=== PATIENT | male | born 1955 | race Caucasian/White ===

== ENCOUNTER → 2021-08-24 | Day surgery (SDC) | payer BC ==
[2021-08-13 09:28] VITALS: BMI 46.0
[~2021-08-24] MED LIST: APIXABAN 5 MG TAB PO SCH; LACTATED RINGERS 1,000 ML IV SCH; PROPOFOL 10 MG/ML 20 ML VIAL IV ONE; SODIUM CHLORIDE 0.9% 1,000 ML IV SCH
[2021-08-24 10:40] VITALS: TEMP 98.2
[2021-08-24 10:45] LABS: Glucose,Whole Blood 112 mg/dL (70-110)
[2021-08-24 11:15] LABS: African American GFR (CKD) >90 (>60 ml/min/1.73 sqM); Anion Gap 6 mmol/L; Blood Urea Nitrogen 14 mg/dL (9-20); Calcium 8.6 mg/dL (8.4-10.2); Carbon Dioxide 31 mmol/L (22-30); Chloride 103 mmol/L (98-107); Glucose 121 mg/dL (74-99); Non-African American GFR(CKD) >90 (>60 ml/min/1.73 sqM); Sodium 140 mmol/L (137-145)
[2021-08-24 11:22] LABS: Potassium 4.2 mmol/L (3.5-5.1)
--- NOTE | 2021-08-24 12:23 | P.PCN ---
Date of Procedure: 08/24/21 Operative Findings: TRANSESOPHAGEAL ECHOCARDIOGRAM MAGNETIC HEALER: TONE GARZA MD, RPVI INDICATION: Cardioversion of atrial fibrillation SEDATION: Conscious sedation COMPLICATION: None LEVEL OF SEDATION The procedure was performed under general anesthesia PROCEDURE DESCRIPTION: After obtaining an informed consent, the patient was brought to recovery room. Pulse oximetry and heart monitors were attached to the patient. The patient throat was sprayed using lidocaine. The patient was turned into left lateral position. After that a bite guard was placed. After an appropriate conscious sedation was initiated, the transesophageal echocardiogram was advanced through a bite guard into the mid esophagus. A 2-D echocardiogram images, color Doppler images, continuous wave images, pulse-wave images, of various cardiac structure were performed. After that the transesophageal echocardiogram probe was advanced into the stomach and fixed to obtain transgastric view was. The probe was brought into the mid esophagus. Inter-atrial septum was interrogated using 2D images, color Doppler images, and then contrast study. After that transesophageal echocardiogram was withdrawn out and upon withdrawing the descending thoracic aorta all the way up to the arch was evaluated. FINDING: The left ventricular dimension and systolic function appeared to be normal. The EF appears to be in the range of 55-60%. There is mild concentric. The right ventricle appears to be of normal size and function. The aortic valve is trileaflet valve and appeared to be sclerotic was mild aortic stenosis and peak gradient of 20 and mean of 10 mmHg. The mitral valve appeared to be thickened and calcified with moderate MR. There is mild tricuspid regurgitation was identified. The interatrial septum appears to be intact. The left atrial appendage appeared to be intact as well. CONCLUSION: 1. Intact left atrial appendage without any evidence of thrombus. Intact interatrial septum 2. Normal left ventricular dimension and systolic function. Mild left ventricular hypertrophy 3. Trileaflet aortic valve with evidence of aortic sclerosis with mild aortic stenosis. Mean gradient was 10 mm roselia 4. Thickened mitral valve leaflets with moderate mitral regurgitation 5. Normal tricuspid valve and pulmonic valve 6. No evidence of pericardial
--- NOTE | 2021-08-24 12:25 | P.PCN ---
Date of Procedure: 08/24/21 Operative Findings: Cardioversion Report Performing physician Maurice Gentile M.D. Procedure performed Attempted cardioversion of atrial fibrillation to normal sinus mechanism using 200 J biphasic x2 Indication Symptomatic atrial fibrillation Complication None Level of sedation The procedure was performed under deep sedation using propofol with PASTRY ARTIST in the room Procedure description After obtaining an informed consent the patient was brought to the recovery room. Sedation was introduced using propofol with PASTRY ARTIST in the room. Transesophageal echocardiogram was performed and intracardiac thrombus was ruled out Attempting cardioversion was performed 2 using 200 J biphasic and was unsuccessful.
[2021-08-24 12:53] VITALS: RESP 16
[2021-08-24 15:06] VITALS: BP 147/90; PULSE 80
== END ==
LOC: CATHCVL 10:04
PROVIDERS: ATTEND Internal Medicine Interventional Cardiology
DX: I48.0 Paroxysmal atrial fibrillation (principal); E11.9 Type 2 diabetes mellitus without complications; I10 Essential (primary) hypertension; E78.5 Hyperlipidemia, unspecified; E66.3 Overweight; G47.30 Sleep apnea, unspecified; M19.90 Unspecified osteoarthritis, unspecified site; Z79.01 Long term (current) use of anticoagulants; Z79.84 Long term (current) use of oral hypoglycemic drugs; Z79.4 Long term (current) use of insulin; Z79.899 Other long term (current) drug therapy
CPT/HCPCS: 93312; 93320; 93325; 92960; 80048; 87635; J2704

== ENCOUNTER → 2023-08-29 | Outpatient (CLI) | payer MEDICARE, BC ==
--- NOTE | 2023-08-29 13:03 | MR ---
EXAMINATION TYPE: MR Prostate wo/w con DATE OF EXAM: 08/29/2023 10:15 AM COMPARISON: None. CLINICAL INDICATION:Male, 68 years old with history of R97.20 ELEVATED PROSTATE SPECIFIC ANTIGEN [PSA ]; Enlarged prostate with elevated PSA. TECHNIQUE: Multi-planar, multi-sequence imaging of the pelvis is performed prior to and following the uncomplicated administration of bolus intravenous gadolinium. CONTRAST: 15 Gadavist Interpretive Criteria: PI-RADS v2.1 SERUM PSA: 07-08-23 = 7.0 05-20-23 = 14.9 06-11-21 = 6.5 SURGICAL PATHOLOGY: No data available. FINDINGS: Prostatic dimensions: 7.7 x 8.6 x 6.3 cm. Ellipsoid Volume:218.44 (PSA density=0.03 ng/mL/mL) CENTRAL GLAND (Central and Transition Zones/CZ+TZ): Multiple bilateral, heterogenous appearing hypertrophic stromal nodules, without suspicious lesion. M edian lobe hypertrophy with protrusion into the base of the bladder. (PI-RADS 2) PERIPHERAL ZONE (PZ): Bilateral linear, indistinct wedgelike areas of low ADC, and low T2 signal, No evidence of masslike a bnormality, or localized perfusional hypervascularity, to further suggest a focus of clinically signi ficant prostate cancer. (PI-RADS 2) SEMINAL VESICLES (SV): Symmetric and unremarkable. PERIPROSTATIC TISSUES: Unremarkable. LYMPH NODES: No enlarged pelvic lymph node. REMAINING PELVIS: Bladder wall is within normal limits given distention. No abnormal free or organized intrapelvic fluid collection. No pathologic bowel dilation or mural thickening. No hernia visualized OSSEOUS STRUCTURES: No suspicious osseous abnormality. IMPRESSION: 1. No specific features for high-risk prostate cancer. Maximum PI-RADS score: 2. 2. Substantial BPH, estimated gland volume 218.44 mL. 3. No suspicious osseous lesion. No lymphadenopathy. No evidence of prostate adenocarcinoma involving the periprostatic tissues.
== END | disposition home or self-care (01) ==
LOC: RADMRIMAIN 08:28
PROVIDERS: ATTEND Urology
DX: N40.0 Benign prostatic hyperplasia without lower urinary tract symptoms (principal); R97.20 Elevated prostate specific antigen [PSA]
CPT/HCPCS: 72197; A9585

== ENCOUNTER 2024-06-28 06:04 | Day surgery (SDC) | payer MEDICARE, BC ==
[2024-06-28] MEDS: IV FLUID CONTINUATION 1,000 ML IV ONE (07:11)
[2024-06-28 07:22] LABS: Glucose,Whole Blood 120 mg/dL (70-110)
[2024-06-28] MEDS: FAMOTIDINE 20 MG/2 ML VIAL IV STA (07:26)
[2024-06-28] MEDS: SODIUM CHLORIDE 0.9% 500 ML IV SCH (07:26)
[2024-06-28] MEDS: DEXAMETHASONE SOD PHOSPHATE 4 MG/ML 1 ML VIAL IVP STA (07:27)
[2024-06-28] MEDS: ONDANSETRON 4 MG/2 ML VIAL IVP STA (07:27)
[2024-06-28] MEDS ORDERED: PROPOFOL 10 MG/ML 20 ML VIAL IV ONE (07:33)
[2024-06-28] MEDS ORDERED: LIDOCAINE 1% INJ 10MG/ML (20 ML MDV) ONE (07:33)
[2024-06-28 07:37] VITALS: TEMP 98.8
[2024-06-28 07:52] LABS: African American GFR (CKD) >90 (>60 ml/min/1.73 sqM); Anion Gap 7 mmol/L; Blood Urea Nitrogen 19 mg/dL (9-20); Calcium 9.2 mg/dL (8.4-10.2); Carbon Dioxide 29 mmol/L (22-30); Chloride 104 mmol/L (98-107); Glucose 120 mg/dL (74-99); Non-African American GFR(CKD) 81 (>60 ml/min/1.73 sqM); Sodium 140 mmol/L (137-145)
[2024-06-28 08:05] LABS: Potassium 4.4 mmol/L (3.5-5.1)
--- NOTE | 2024-06-28 08:08 | P.PCN ---
Date of Procedure: 06/28/24 Operative Findings: Cardioversion Report Performing physician Maurice Gentile M.D. Procedure performed Attempted cardioversion of atrial fibrillation to normal sinus mechanism using 120 J and 200 J and 200 J Indication Symptomatic atrial fibrillation Complication None Level of sedation The procedure was performed under deep sedation using propofol with SENIOR AUDIT MANAGER in the room Procedure description After obtaining an informed consent the patient was brought to the recovery room. Sedation was introduced using propofol with SENIOR AUDIT MANAGER in the room. Subsequently cardioversion was attempted as described above but the patient remains in nature with heart rate Postprocedure management Continue the current medical regimen Continue oral anticoagulation Follow-up with the patient
[2024-06-28 08:46] VITALS: BP 118/74; PULSE 64; RESP 16
== END 2024-06-28 09:02 | disposition home or self-care (01) ==
LOC: OR 06:04
PROVIDERS: ATTEND Internal Medicine Interventional Cardiology
DX: I48.19 Other persistent atrial fibrillation (principal); I10 Essential (primary) hypertension; E11.9 Type 2 diabetes mellitus without complications; E78.5 Hyperlipidemia, unspecified; E66.3 Overweight; G47.33 Obstructive sleep apnea (adult) (pediatric); Z68.42 Body mass index [BMI] 45.0-49.9, adult; Z99.89 Dependence on other enabling machines and devices; Z79.4 Long term (current) use of insulin; Z79.02 Long term (current) use of antithrombotics/antiplatelets; Z79.84 Long term (current) use of oral hypoglycemic drugs; Z79.899 Other long term (current) drug therapy
CPT/HCPCS: 92960; 80048; J1100; J2405; J2003; J2704; J1308